=== PATIENT | female | born 1965 | race Caucasian/White ===

== ENCOUNTER → 2017-09-29 | Outpatient (CLI) | payer BC ==
[~2017-09-29] MED LIST: AMLO10TA2 PO; APIX5TAB PO; AZIT250T12 PO; LEVO50TA6 PO; LIRA0.6P3 SQ; METF500T8 PO; METO-370 PO; NF-SOLIF5T PO; NORG1TAB6 PO; SERT100T8 PO
--- NOTE | 2017-09-29 10:57 | Diagnostic Imaging Report ---
EXAMINATION: Left lower extremity duplex venous ultrasound. TECHNIQUE: DVT protocol. Multiple sonographic images with color Doppler and waveform interrogation were performed of the left lower extremity veins with compression and augmentation maneuvers. INDICATION: Left leg . FINDINGS: The left lower extremity veins from the groin to the knee veins were examined with normal color-flow, compressibility and waveform demonstrated. The infrapopliteal veins are from not well seen due to large patient body habitus. The great saphenous vein is patent. IMPRESSION: No evidence of DVT in the left lower extremity from the groin to the knee. Veins in the calf are not well seen. Dictated by: Dictated on workstation # [id number]
== END ==
LOC: RAD 09:54
PROVIDERS: ATTEND Nurse Practitioner Community Health
DX: M79.605 Pain in left leg (principal)

== ENCOUNTER → 2019-03-22 | Outpatient (CLI) | payer BC ==
[~2019-03-22] MED LIST changes: -AMLO10TA2 PO; +AMLO10TA7 PO
--- NOTE | 2019-03-22 11:58 | Diagnostic Imaging Report ---
INDICATION: Routine screening. COMPARISON: 02/14/2016 and 10/23/2014. TECHNIQUE: 2D and 3D bilateral screening mammography was performed with CAD. FINDINGS: Scattered fibroglandular densities are identified bilaterally. There are benign calcifications bilaterally. An intraparenchymal lymph node in the outer left breast appears stable. No new mass or malignant appearing microcalcifications are seen. The axillae are unremarkable. IMPRESSION: No mammographic features suspicious for malignancy are identified. ACR BI-RADS Category 2: Benign findings. Result letter will be mailed to the patient. Note: At least 10% of breast cancer is not imaged by mammography. Dictated by: Dictated on workstation # [id number]
== END ==
LOC: RAD 07:51
PROVIDERS: ATTEND Nurse Practitioner Community Health
DX: Z12.31 Encounter for screening mammogram for malignant neoplasm of breast (principal)
CPT/HCPCS: 77067